=== PATIENT | male | born 1970 | race Caucasian/White ===

== ENCOUNTER 2019-10-16 15:10 | Inpatient (IN) | payer BC ==
[2019-10-16] MEDS ORDERED: Diltiazem 125 MG/25 ML ONE ×3 (15:22→15:39)
[2019-10-16 15:35] LABS: #Basophils 0.1 thou/uL (0.0-0.2); #Eosinphils 0.3 thou/uL (0.0-0.7); #Lymphocytes 3.1 thou/uL (1.20-3.40); #Monocytes 1.2 thou/uL (0.11-0.59); #Neutrophils 6.9 thou/uL (1.40-6.50); %Basophils 0.8 % (0.0-1.0); %Eosinophils 2.9 % (0.0-10.0); %Lymphocytes 26.7 % (21.0-51.0); %Monocytes 10.1 % (0.0-10.0); %Neutrophils 59.5 % (42.0-75.0); Hemoglobin 17.1 g/dL (14.0-18.0); Mean Corpuscular HGB CONC 34.5 g/dL (32.0-36.0); Mean Corpuscular Hemoglobin 31.7 pg (27.0-31.0); Mean Platelet Volume 8.5 fL (7.4-10.4); Platelet Count 160 thou/uL (130-400); RBC Distribution Width 12.2 % (11.5-14.5); Red Blood Cell (RBC) Count 5.37 mill/uL (4.70-6.10); White Blood Cell (WBC) Count 11.5 thou/uL (4.8-10.8)
[2019-10-16 15:57] LABS: ALT (SGPT) 111 U/L (8-55); AST (SGOT) 64 U/L (5-34); Albumin 4.2 g/dL (3.5-5.0); Alkaline Phosphatase 75 U/L (40-110); Anion Gap 10 mmol/L (10-20); BUN (Urea Nitrogen) 14 mg/dL (8.9-20.6); Bilirubin, Total 0.7 mg/dL (0.2-1.2); CK (CPK) 174 U/L (30-200); Calc. Creatinine Clearance 0 mL/min (70-130); Calcium 9.9 mg/dL (7.8-10.44); Carbon Dioxide 29 mmol/L (22-29); Chloride 104 mmol/L (98-107); Estimated GFR-MDRD 85; Globulin 3.3 g/dL (2.4-3.5); Glucose 100 mg/dL (70-105); Potassium 4.3 mmol/L (3.5-5.1); Protein, Total 7.5 g/dL (6.0-8.3); Sodium 139 mmol/L (136-145)
--- NOTE | 2019-10-16 16:02 | RAD ---
XR Chest 1 View Portable HISTORY: Atrial fibrillation COMPARISON: None FINDINGS: The heart size is normal. The lungs are well expanded without focal areas of consolidation, pneumothorax or pleural effusions. IMPRESSION: No radiographic evidence of acute cardiopulmonary process.
[2019-10-16 16:18] LABS: CKMB 5.2 ng/mL (0-6.6)
[2019-10-16] MEDS ORDERED: Enoxaparin Sodium 100 MG/ML SYRINGE ONE (17:37)
[2019-10-16] MEDS ORDERED: Aspirin 325 MG TAB ONE (17:52)
[2019-10-16] MEDS ORDERED: Sodium Chloride 0.9% 1,000 ML IV SCH (18:45)
[2019-10-16 19:05] LABS: Hemoglobin A1c 4.8 % (4.0-6.0)
[2019-10-16 19:16] LABS: Troponin I 0.216 ng/mL (< 0.028)
--- NOTE | 2019-10-16 20:29 | HP ---
PRIMARY CARE PHYSICIAN: None. CHIEF COMPLAINT: Palpitations, fatigue x1 day duration. HISTORY OF PRESENT ILLNESS: This is a 49-year-old obese male with no chronic medical comorbidities. He does not routinely see a primary care physician, who was referred to [facility] ER from Urgent Care for new onset atrial fibrillation with RVR. He initially presented to Urgent Care after awakening early this morning with complaints of dyspepsia and acid reflux symptoms around 2:30 this morning and reports eating grilled chicken with sausage and jalapeno the night prior. He attempted to take Tums last night with temporizing relief. He went back to sleep and when he woke early this morning noted complaints of palpitations and overwhelming fatigue and inability to take a full breath. He denies any anginal complaints, illicit drug use, caffeine intake, energy drink use, or any other herbal medications. Denies any prior similar complaints, recent illnesses, nausea, vomiting, diarrhea, or abdominal pain. In ER, repeat 12-lead EKG confirmed new-onset atrial fibrillation with RVR 170s. The patient was administered 20 mg IV Cardizem push followed by 35 mg IV Cardizem push and started on IV Cardizem drip initially 5 mg/hour, which is currently at 12.5 mg/hour during my evaluation. Initial troponin I is elevated at 0.186 with repeat troponin I of 0.216. The patient has also received weight based Lovenox injection and oral aspirin 325 mg and admitted for inpatient evaluation. At bedside, the patient corroborates history. The patient offers no other acute complaints. His current ventricular rates are 90s to 120s. He notes family history of Vuonv-Jmabrcwtd-Xdrjx syndrome in his brother and states that his half- brother has unclear cardiac arrhythmia problems. He denies any family history of sudden cardiac . He reports chronic alcohol dependence with a daily 12-pack beer intake, but denies any complaints of withdrawal symptoms. He offers no other acute complaints. His dyspepsia symptoms are resolved. He is generally ambulatory and functional at baseline. He denies any complaints of orthopnea or lower extremity edema. PAST MEDICAL HISTORY: Morbid obesity. PAST SURGICAL HISTORY: Left hand ganglion cyst removal. SOCIAL HISTORY: The patient dips snuff. He drinks a 12-pack of beer on a daily basis. He denies any illicit drug use. He is functional, ambulatory at baseline without use of assistive device. ALLERGIES: NONE REPORTED. REVIEW OF SYSTEMS: Pertinent positives as per HPI. Remainder of review of systems negative. MEDICATIONS: None. FAMILY HISTORY: The patient's brother has Ialke-Foinlwnhw-Wgtby syndrome. The patient's brother has unclear cardiac arrhythmia. No family history of sudden cardiac . PHYSICAL EXAMINATION: VITAL SIGNS: During my evaluation, pulse 90s to 120s, atrial fibrillation; temperature 98.7; respirations 18; blood pressure 117/69; and oxygen saturation 95% on room air. GENERAL APPEARANCE: This is a middle-aged obese male who is awake, alert, oriented, not in any obvious distress. HEENT: Normocephalic, atraumatic. No facial asymmetry. Pupils equally round. Extraocular muscles intact. NECK: Supple. No obvious JVD. CARDIOVASCULAR: S1, S2. Irregularly irregular. Tachycardic. No harsh murmurs. No reproducible chest wall tenderness overlying anterior chest. LUNGS: Bilateral equal air entry on posterior auscultation. Nonlabored respirations. No wheezing or rales. ABDOMEN: Soft, nontender, nondistended. No obvious peritoneal signs. EXTREMITIES: No edema, cyanosis, or deformities noted. SKIN: Warm to touch without rash, pallor, or abrasion. LABORATORY VALUES: WBC 11.5, hemoglobin and hematocrit 17.1/49.4, platelets 160. Sodium 139, potassium 4.3, chloride 104, bicarb 29, glucose 100, BUN and creatinine 14/0.95. AST 64, ALT 111. Troponin I of 0.186 with repeat 0.216. Albumin 4.2. IMAGING DATA: One-view chest x-ray 10/16/2019 reveals no radiographic evidence of acute cardiopulmonary process. A 12-lead EKG reviewed with the ER physician reported initially to have new- onset atrial fibrillation with RVR with repeat EKG suggesting atrial fibrillation with improved ventricular rate without ischemia or infarction changes. ASSESSMENT: 1. New-onset atrial fibrillation with rapid ventricular response. The patient will be admitted as inpatient status and placed on vehicle monitor technician in [facility]. We will continue IV Cardizem drip and titrate to maintain appropriate ventricular rate control less than 110 beats per minute. We will obtain serial cardiac biomarkers to exclude acute coronary syndrome as potential etiology of symptoms. We will bolus 1 L normal saline. If the patient is refractory to IV Cardizem push, may need consideration of IV amiodarone initiation or IV digoxin. Obtain transthoracic echocardiogram. Await further cardiology recommendations for secondary stroke prevention. Check A1c, TSH. Noting family history of arrhythmias, the patient may require further EP evaluation as an outpatient. 2. Elevated troponin of unclear etiology. Possibly supply demand mismatch from new onset atrial fibrillation with rapid ventricular response. The patient denies any obvious anginal complaints. He denies any prior cardiac risk stratification. We will obtain transthoracic echocardiogram to evaluate for any wall motion abnormalities and to assess for cardiac structural and valvular function. We will continue on oral aspirin in the interim. Cardiology consultation placed. 3. Elevated liver enzymes. Possibly attributed to chronic alcohol dependence with daily beer intake. 4. Obesity, unspecified etiology. Deep venous thrombosis prophylaxis. The patient has received weight based Lovenox injection in ER. Disposition: The patient will be admitted as inpatient status to [facility]. Job ID: [id number] MTDD
[2019-10-16] MEDS ORDERED: Ondansetron ODT 4 MG TAB SL PRN (20:52)
[2019-10-16] MEDS ORDERED: Ondansetron PF 4 MG/2 ML Vial IVP PRN (20:52)
[2019-10-16] MEDS ORDERED: Diltiazem HCl 125 MG, Admixture Fee 1 EACH in Sodium Chloride 0.9% 100 ML IVPB SCH (21:00)
[2019-10-16 22:06] VITALS: BP 146/87; BMI 43.0
[2019-10-16 22:12] LABS: Troponin I 0.223 ng/mL (< 0.028)
[2019-10-17] MEDS: Diltiazem HCl 125 MG, Admixture Fee 1 EACH in Sodium Chloride 0.9% 100 ML IVPB SCH ×2 (09:27→19:32)
--- NOTE | 2019-10-17 14:21 | PDOC.HOSPP ---
- Subjective Subjective: Pt reports back pain and discomfort in the bed. Pt is morbidly obese and reports snoring and a chaotic circadian rhythm related to work schedule. - Objective Vital Signs & Weight: Vital Signs (12 hours) Temp Pulse Ox 10/17/19 11:10 97.0 F L 10/17/19 08:00 98 10/17/19 07:13 97.7 F 10/17/19 03:41 97.6 F Weight Weight 326 lb Most Recent Monitor Data Heart Rate from ECG 112 NIBP 162/91 NIBP BP-Mean 114 Respiration from ECG 14 SpO2 97 I&O: 10/16/19 10/17/19 10/18/19 06:59 06:59 06:59 Intake Total 1167 Balance 1167 Result Diagrams: 10/16/19 15:25 10/16/19 15:25 Hospitalist ROS - Medication Medications: Active Medications Generic Name Dose Route Start Last Admin Trade Name Freq PRN Reason Stop Dose Admin Diltiazem HCl 125 mg/ 125 mls @ 0 mls/hr 10/17/19 05:30 10/17/19 09:27 Miscellaneous Medication 1 IVPB 125 mls each/ Sodium Chloride INF MASON Administration Protocol As Directed Sodium Chloride 10 ml 10/16/19 21:00 10/17/19 09:24 Flush - Normal Saline IVF Not Given Q12HR MASON - Exam General Appearance: NAD, awake alert Heart: no murmur, no gallops, no rubs, irregular Heart - other findings: tachycardic Respiratory: CTAB, no wheezes, no rales, no ronchi, normal chest expansion Gastrointestinal: soft, non-tender, non-distended, normal bowel sounds, no palpable masses, no hepatomegaly, no splenomegaly, no bruit Extremities: no edema Musculoskeletal: normal tone, normal strength, no muscle wasting Psychiatric: normal affect, normal behavior, A&O x 3 Psychiatric - other findings: became tearful at one point discussing his situation. Hosp A/P (1) Atrial fibrillation with RVR Code(s): I48.91 - UNSPECIFIED ATRIAL FIBRILLATION Status: Acute (2) Morbid obesity Code(s): E66.01 - MORBID (SEVERE) OBESITY DUE TO EXCESS CALORIES Status: Acute (3) Myocardial infarction Code(s): I21.9 - ACUTE MYOCARDIAL INFARCTION, UNSPECIFIED Status: Acute Qualifiers: Myocardial infarction type: type 2 Qualified Code(s): I21.A1 - Myocardial infarction type 2 - Plan Atrial Fibrillation with RVR: Cardizem drip at 15. Rate ranging between 90-130s. Cardiology consulted. Echo taken, awaiting report. Anticipate possible cardioversion. Elevated Troponins: Troponins at indeterminant levels. Likely secondary to demand ischemia. Alcohol Abuse: Prn Ativan Potential Sleep Apnea: Can be seen by pulmonology outpatient for assessment. DVT Prophylaxis:
[2019-10-17] MEDS ORDERED: Enoxaparin Sodium 120 MG/0.8 ML SYRINGE SC SCH ×3 (15:00→16:00)
[2019-10-17] MEDS ORDERED: Enoxaparin Sodium 30 MG/0.3 ML SYRINGE SC SCH (16:00)
--- NOTE | 2019-10-17 20:55 | CON ---
DATE OF CONSULTATION: 10/17/2019 REASON FOR CONSULTATION: Atrial fibrillation with a rapid ventricular response. HISTORY OF PRESENT ILLNESS: Mr. Shahid is a 49-year-old man. The patient was at home resting in bed, sleeping when he was awakened by a feeling of uncomfortable sensation in his throat. He ultimately became aware of a rapid heart rate and a somewhat strange sensation of choking or an unusual sensation in his throat. The sensation seemed to get somewhat better. His girlfriend offered to take him to the emergency room, but he thought it would be okay. He went ahead and went to work, but did not feel any better; went to the urgent care, where he was found to be in atrial fibrillation with a rapid rate. He was referred to the emergency room. He was noted that his heart rate was 170 there. He has been in the hospital since then. PAST MEDICAL HISTORY: Negative for any cardiac procedures or operations. No chest pain or pressure, moderately active. He is taking no medicines. The patient is extremely overweight. He does not have sleep apnea. As far as he knows, he says he sleeps 4 to 5 hours at night and wakes up feeling fine. His girlfriend indicates that the patient does snore, but not excessively so. ALLERGIES: NONE KNOWN. SOCIAL HISTORY: He does drink approximately 12 beers per day. FAMILY HISTORY: Negative for heart disease at a young age. Social history as mentioned. REVIEW OF SYSTEMS: CONSTITUTIONAL: No significant weight gain or loss. He is very overweight with the BMI of 43. HEENT: Vision, no changes. Hearing, no changes. PULMONARY: No cough or wheezing. GASTROINTESTINAL: No nausea, vomiting, or diarrhea. SKIN: No rashes. NEUROLOGIC: No unilateral weakness or numbness. PSYCHIATRIC: No unusual depression or anxiety. HEMATOLOGIC: No unusual bruising. GENITOURINARY: No burning with urination. PHYSICAL EXAMINATION: GENERAL: This is a very pleasant 49-year-old gentleman. VITAL SIGNS: He is 6 feet 1 inch tall, 326 pounds. HEENT: Eyes, sclerae nonicteric. Mouth, mucous membranes moist. NECK: Supple. No lymphadenopathy. LUNGS: Clear. CARDIAC: Irregularly irregular. There is no murmur, rub, or gallop. ABDOMEN: Soft, obese, nontender. No hepatosplenomegaly. EXTREMITIES: Warm and dry. No clubbing or cyanosis. There is no edema. SKIN: Warm and dry. DIAGNOSTIC STUDIES: EKG does reveal atrial fibrillation now with a more controlled ventricular response, 95 to 110. The initial EKG did show heart rate of 170. No ST changes. PERTINENT LABORATORY DATA: The troponin level did go to potassium is 4.3, hemoglobin A1c is 4.8, normal. ASSESSMENT: 1. Paroxysmal atrial fibrillation with a rapid ventricular response. 2. Increased troponin, likely demand ischemia due to prolonged episode of tachycardia. 3. Severe obesity with BMI of 43. PLAN: 1. He is on intravenous diltiazem. 2. Currently CHADS-VASc 0, would not likely need long-term anticoagulation based on the current guidelines and recommendations. 3. Echocardiogram showed normal left ventricular function. He would be a reasonable candidate to use flecainide and diltiazem. 4. Proceed to cardioversion tomorrow and transesophageal echo. Discussed risk of injury to the esophagus and mouth, need for pacemaker insertion, risk of stroke. He understands and wishes to proceed. Job ID: [id number]
[2019-10-17] MEDS ORDERED: FLU VACC QS2019-20(6MOS UP)/PF 60 MCG/0.5 ML SYRINGE IM ONE (21:00)
[2019-10-17] MEDS ORDERED: Lorazepam 2 MG/ML VIAL SLOW IVP PRN (21:13)
[2019-10-18] MEDS: Diltiazem HCl 125 MG, Admixture Fee 1 EACH in Sodium Chloride 0.9% 100 ML IVPB SCH (04:42)
[2019-10-18 07:40] VITALS: TEMP 98.1
[2019-10-18] MEDS ORDERED: PROPOFOL 20 ML ONE ×2 (10:26→10:53)
[2019-10-18] MEDS ORDERED: Lidocaine 1% PF 5 ML VIAL ONE (10:54)
[2019-10-18] MEDS ORDERED: Flecainide 50 MG TAB PO SCH ×2 (11:45→21:00)
[2019-10-18] MEDS ORDERED: Apixaban 5 MG TAB PO SCH ×2 (11:45→21:00)
--- NOTE | 2019-10-18 16:34 | OP ---
DATE OF PROCEDURE: 10/18/19 SURGEON: Justus Huff M.D. PROCEDURE: Cardioversion The patient is brought to the Recovery Room in the fasting state. Transesophageal echo revealed no ev idence of any formed thrombus. He was given 200 joules direct current energy after being sedated. He had a sinus pause followed by n ormal sinus rhythm. I would estimate the pause was approximately 2.5 seconds. CONCLUSIONS: Successful cardioversion and approximately 2.5 second pause associated with cardioversion.
--- NOTE | 2019-10-19 08:44 | OP ---
DATE OF PROCEDURE: 10/18/2019 PROCEDURE PERFORMED: Transesophageal echocardiogram. INDICATIONS FOR PROCEDURE: A 49-year-old gentleman with paroxysmal atrial fibrillation. DESCRIPTION OF PROCEDURE: The patient was taken to the PACU. The patient was sedated by Anesthesiology. A transesophageal probe was placed into the distal esophagus and stomach. Echocardiographic images were obtained. The transesophageal probe was removed. FINDINGS: 1. Normal left ventricular systolic function. 2. Biatrial enlargement. 3. Normal mitral and aortic valve. 4. Moderate mitral regurgitation. 5. Mild tricuspid regurgitation. 6. No thrombus in the left atrium or left atrial appendage. 7. Atherosclerotic debris in the descending aorta. IMPRESSION: No formed thrombus in the left atrium or left atrial appendage. Job ID: [id number]
--- NOTE | 2019-10-19 13:45 | OP ---
DATE OF PROCEDURE: DATE OF PROCEDURE: 10/18/19 SURGEON: Justus Huff M.D. PROCEDURE: Cardioversion The patient is brought to the Recovery Room in the fasting state. Transesophageal echo revealed no evidence of any formed thrombus. He was given 200 joules direct current energy after being sedated. He had a sinus pause followed by normal sinus rhythm. I would estimate the pause was approximately 2.5 seconds. CONCLUSIONS: Successful cardioversion and approximately 2.5 second pause associated with cardioversion. Job ID: [id number]
== END 2019-10-18 17:05 | disposition home or self-care (01) | DRG 281 ==
LOC: ERS 15:10 → ERHOLD 17:39 → IMCU/EMU 20:51
PROVIDERS: ADMIT Hospitalist; ATTEND Hospitalist
PROC: B24BZZ4 Ultrasonography of Heart with Aorta, Transesophageal (ICD-10-PCS; principal; 2019-10-18)
PROC: 5A2204Z Restoration of Cardiac Rhythm, Single (ICD-10-PCS; 2019-10-18)
DX: I48.0 Paroxysmal atrial fibrillation (principal); I21.A1 Myocardial infarction type 2; Z68.41 Body mass index [BMI] 40.0-44.9, adult; E66.01 Morbid (severe) obesity due to excess calories; K21.9 Gastro-esophageal reflux disease without esophagitis; G47.00 Insomnia, unspecified; F10.10 Alcohol abuse, uncomplicated
CPT/HCPCS: 36415; 71045; 80053; 82550; 82553; 83036; 84443; 84484; 85025; 93005; 93306; 93312; 94760; J1650; J2001; J2704; J3490

== ENCOUNTER 2023-12-06 08:57 | Outpatient (CLI) | payer BC | END 2023-12-06 08:58 | disposition home or self-care (01) | LOC: BICMRI 08:57 | PROVIDERS: ATTEND Family Medicine | DX: M47.22 Other spondylosis with radiculopathy, cervical region (principal); M47.813 Spondylosis without myelopathy or radiculopathy, cervicothoracic region; M48.02 Spinal stenosis, cervical region | CPT/HCPCS: 72141 ==